=== PATIENT | male | born 1975 ===

== ENCOUNTER 2020-09-14 08:36 | Emergency (ER) | payer SELFPAY ==
[~2020-09-14] VITALS: Ht 165.1 cm; Wt 72.7 kg
[2020-09-14 09:40] VITALS: BP 158/114
== END 2020-09-14 18:30 | disposition left against medical advice (07) ==
LOC: ER 08:37
DX: R10.9 Unspecified abdominal pain (principal); Z53.21 Procedure and treatment not carried out due to patient leaving prior to being seen by health care provider